=== PATIENT | female | born 1985 | race Two or more races ===

== ENCOUNTER 2021-06-13 01:12 | Emergency (ER) | payer OTHER ==
[~2021-06-13] VITALS: Ht 162.6 cm; Wt 108.9 kg
[2021-06-13] MEDS ORDERED: CELEXA10 MG (01:22)
[2021-06-13] MEDS ORDERED: IBU800 MG PO (02:37)
== END 2021-06-13 02:43 ==
LOC: ER 01:12
DX: S60.042A Contusion of left ring finger without damage to nail, initial encounter (principal); X58.XXXA Exposure to other specified factors, initial encounter; Y92.830 Public park as the place of occurrence of the external cause